=== PATIENT | female | born 1940 | race African-American/Black ===

== ENCOUNTER 2023-07-25 10:34 | Emergency (ER) | payer OTHER ==
[~2023-07-25] VITALS: Ht 162.6 cm; Wt 60.0 kg
[2023-07-25 10:37] VITALS: O2SAT 100
[2023-07-25] MEDS ORDERED: KETAMINE HCL 50 MG/ML 10ML IM ONE (11:45)
[2023-07-25 11:50] LABS: BASOPHILS % 0.7 % (0.0-2.0); EOSINOPHILS % 4.8 % (0.0-5.0); HEMATOCRIT. 42.4 % (36.0-48.0); HEMOGLOBIN. 13.7 g/dL (12.0-16.0); MEAN CORPUSCULAR HEMOGLOBIN 26.3 pg (28.0-32.0); MEAN CORPUSCULAR HGB CONC 32.3 g/dL (31.0-37.0); MEAN CORPUSCULAR VOLUME 81.4 fL (81.0-99.0); MONOCYTES % 5.1 % (2.0-8.0); NEUTROPHILS % 55.4 % (40.0-76.0); PLATELET 177 x1000/uL (130-400); RED CELL DISTRIBUTION WIDTH 14.5 % (11.6-14.6); WHITE BLOOD COUNT 7.9 x1000/uL (4.5-11.0)
[2023-07-25] MEDS: PROPOFOL 200MG/20ML VIAL IV ONE (12:02)
[2023-07-25] MEDS: PROPOFOL 200MG/20ML VIAL IV SCH (12:07)
[2023-07-25] MEDS: KETAMINE HCL 50 MG/ML 10ML IM SCH (12:08)
[2023-07-25 12:33] LABS: ALANINE AMINOTRANSFERASE 16 IU/L (10-49); ALBUMIN 4.4 g/dL (3.2-4.8); ASPARTATE AMINOTRANSFERASE 20 IU/L (<34); BILIRUBIN TOTAL 0.3 mg/dL (0.1-1.0); CALCIUM 9.1 mg/dL (8.7-10.4); CARBON DIOXIDE 24 mEq/L (21-32); CHLORIDE 110 mEq/L (98-107); CREATININE 1.2 mg/dL (0.6-1.0); GLUCOSE 106 mg/dL (70-105); POTASSIUM 4.4 mEq/L (3.5-5.1); PROTEIN TOTAL 7.5 g/dL (6.0-8.3); SODIUM 139 mEq/L (136-145); UREA NITROGEN BLOOD 21 mg/dL (9-23)
[2023-07-25 12:38] LABS: TROPONIN I HIGH SENSITIVITY < 4 ng/L (3.0-34)
[2023-07-25] MEDS ORDERED: TOPUD PO (13:29)
[2023-07-25 15:23] VITALS: BP 138/76; PULSE 64; RESP 15; TEMP 97.8
== END 2023-07-25 15:29 | disposition home or self-care (01) ==
LOC: ER 12:40
DX: S43.004A Unspecified dislocation of right shoulder joint, initial encounter (principal); J45.909 Unspecified asthma, uncomplicated; I10 Essential (primary) hypertension; W01.0XXA Fall on same level from slipping, tripping and stumbling without subsequent striking against object, initial encounter; Y93.89 Activity, other specified; Y92.89 Other specified places as the place of occurrence of the external cause; Y99.8 Other external cause status
CPT/HCPCS: 99285; 23650; 70450; 71045; 80053; 83880; 85025; 84484; 36415; 73030; 93005; 99152; J3490; J2704; A4565